=== PATIENT | male | born 1960 | race Two or more races ===

== ENCOUNTER 2017-03-27 07:59 | Emergency (ER) | payer OTHER ==
[~2017-03-27] VITALS: Ht 162.6 cm; Wt 70.0 kg
[~2017-03-27 07:59] MED LIST: EC ASPIRIN325 MG PO; ECPIRIN325 MG OR; GABAPENTIN300 MG PO; GLUCOTROL XL10 MG OR; HUMULIN N1 ML SC; HUMULIN R1 M1 SC; INSTA-GLUCOS40 % PO; LOPID600 MG PO; LOVASTATIN10 MG PO; METFORMIN1000 MG OR; METFORMIN500 MG PO; MEVACOR40 MG OR; NEURONTIN600 MG OR; NOVOLO1 SC; PERCOGESI1 PO; PROZAC40 MG OR; RANITIDINE150 MG PO; TRICOR145 MG OR; VISTARIL50 MG OR; [UNRECOGNIZED DRUG - OTHER]; [UNRECOGNIZED DRUG - OTHER] OR; [UNRECOGNIZED DRUG - REMARK]
[2017-03-27 08:49] LABS: HEMATOCRIT 35.3 % (39.0-50.0); HEMOGLOBIN 10.8 g/dl (14.0-18.0); IMMATURE GRANULOCYTES 0.4 % (0.0-1.0); MEAN CORPUSCULAR HGB 25.7 pG CALC (26.0-32.0); MEAN CORPUSCULAR HGB CONC 30.6 g/L CALC (32.0-36.0); NEUT# 16.5 thou/uL (1.82-7.42); RED BLOOD COUNT 4.2 mill/uL (4.70-6.10); RED CELL DISTRI WIDTH 20.7 % (11.5-15.5)
[2017-03-27 08:50] LABS: ALBUMIN 3.3 g/dL (3.2-5.0); ALKALINE PHOSPHATASE 158 u/l (38-126); ANION GAP 19 (6-22 (CALC)); BILIRUBIN, TOTAL 0.7 mg/dL (0.0-1.4); BUN 33 mg/dL (9-20); BUN/CREATININE RATIO 60 (12-20 (CALC)); CALCIUM 9.9 mg/dL (8.4-10.2); CARBON DIOXIDE 20 mmol/l (22-30); CHLORIDE 114 mmol/l (95-108); CREATININE 0.5 mg/dL (0.7-1.3); ETHYL ALCOHOL 0 mg/dl (0-30); GFR > 60 ML/MIN (>=60 (CALC)); GFR FOR AFR.AMER. > 60 ML/MIN (>=60 (CALC)); GLUCOSE 146 mg/dL (75-110); LIPASE 45 u/l (23-300); SGOT/AST 17 u/l (17-59); SGPT/ALT 21 u/l (21-72); SODIUM 147 mmol/l (137-146); TOTAL PROTEIN 7.3 g/dL (6.3-8.2)
[2017-03-27 08:55] LABS: INTERNATIONAL NORMALIZED RATIO 1.2 RATIO (0.7-1.3)
[2017-03-27 09:02] LABS: MYOGLOBIN 252 ng/mL (0 - 121)
[2017-03-27] MEDS ORDERED: MORPHINE SULF5 MG/ML SC (09:45)
[2017-03-27] MEDS ORDERED: MYCAMINE100 MG IV (09:45)
[2017-03-27] MEDS ORDERED: GABAPENTIN100 MG PO (09:47)
[2017-03-27] MEDS ORDERED: FERR SULFATE325 MG PO (09:47)
[2017-03-27] MEDS ORDERED: TAMSULOSIN0.4 MG PO (09:48)
[2017-03-27] MEDS ORDERED: VICODIN HP1 TA1 PO (09:49)
[2017-03-27] MEDS ORDERED: MS CONTIN30 MG PO (09:50)
[2017-03-27] MEDS ORDERED: IMODIUM2 MG PO (09:51)
[2017-03-27] MEDS ORDERED: LANTUS100 UNIT/M SC (09:53)
[2017-03-27 11:08] VITALS: BP 134/60
== END 2017-03-27 12:25 | disposition short-term general hospital (02) | DRG 193 ==
LOC: ED 07:59
PROVIDERS: Emergency Medicine
DX: J18.9 Pneumonia, unspecified organism (principal); K65.1 Peritoneal abscess; B95.7 Other staphylococcus as the cause of diseases classified elsewhere; Z98.0 Intestinal bypass and anastomosis status; R94.31 Abnormal electrocardiogram [ECG] [EKG]; R41.82 Altered mental status, unspecified
CPT/HCPCS: J1650; Q9967

== ENCOUNTER 2019-03-26 00:06 | Emergency (ER) | payer OTHER ==
[~2019-03-26] VITALS: Ht 162.6 cm; Wt 73.6 kg
[~2019-03-26 00:06] MED LIST changes: +FERR SULFATE325 MG PO; +GABAPENTIN100 MG PO; +IMODIUM2 MG PO; +LANTUS100 UNIT/M SC; +MORPHINE SULF5 MG/ML SC; +MS CONTIN30 MG PO; +MYCAMINE100 MG IV; +TAMSULOSIN0.4 MG PO; +VICODIN HP1 TA1 PO
[2019-03-26] MEDS ORDERED: PROTONIX40 M2 PO (00:24)
[2019-03-26] MEDS ORDERED: LOPID600 MG PO (00:26)
[2019-03-26] MEDS ORDERED: HUMULIN N100 UNIT/M SC (00:29)
[2019-03-26] MEDS ORDERED: FLUOXETINE10 M2 PO (00:30)
[2019-03-26 01:12] LABS: HEMATOCRIT 40.4 % (39.0-50.0); HEMOGLOBIN 12.7 g/dl (14.0-18.0); IMMATURE GRANULOCYTES 0.3 % (0.0-5.0); MEAN CELL VOLUME 86.1 fL CALC (80.0-100.0); MEAN CORPUSCULAR HGB 27.1 pG CALC (26.0-32.0); MEAN CORPUSCULAR HGB CONC 31.4 g/L CALC (32.0-36.0); RED BLOOD COUNT 4.69 mill/uL (4.70-6.10); RED CELL DISTRI WIDTH 20.9 % (11.5-15.5)
[2019-03-26 01:25] LABS: ANION GAP 16 (6-22 (CALC)); BUN 21 mg/dL (9-20); BUN/CREATININE RATIO 33 (12-20 (CALC)); CARBON DIOXIDE 21 mmol/l (22-30); CHLORIDE 102 mmol/l (95-108); CREATININE 0.6 mg/dL (0.7-1.3); GFR > 60 ML/MIN (>=60 (CALC)); GFR FOR AFR.AMER. > 60 ML/MIN (>=60 (CALC)); POTASSIUM 4.6 mmol/l (3.5-5.1); SGOT/AST 102 u/l (17-59); SODIUM 134 mmol/l (137-146); TOTAL PROTEIN 7.3 g/dL (6.3-8.2)
[2019-03-26 01:27] LABS: ALKALINE PHOSPHATASE 671 u/l (38-126); BILIRUBIN, TOTAL 8.4 mg/dL (0.0-1.4)
[2019-03-26 01:28] LABS: ALBUMIN 3.2 g/dL (3.2-5.0)
[2019-03-26 01:37] LABS: BAND 8 % (0-8); MANUAL DIFFERENTIAL YES; PLATELET COUNT 314 thou/uL (130-400)
[2019-03-26 01:38] LABS: OTHER CELL TYPE 1
[2019-03-26] MEDS ORDERED: ROCEPHIN1 G1 IJ (01:49)
--- NOTE | 2019-03-26 02:48 | NUR ---
BREATHING TREATMENT GIVEN. BREATHING TECH FOR GOOD DEPOSITION TO THE LUNGS.
[2019-03-26 03:13] VITALS: BP 118/64
== END 2019-03-26 03:13 | disposition designated cancer center or children's hospital (05) | DRG 194 ==
LOC: ED 00:06
PROVIDERS: Family Medicine
DX: J18.9 Pneumonia, unspecified organism (principal); C18.9 Malignant neoplasm of colon, unspecified; C78.7 Secondary malignant neoplasm of liver and intrahepatic bile duct; C78.00 Secondary malignant neoplasm of unspecified lung; I10 Essential (primary) hypertension; Z66 Do not resuscitate